=== PATIENT | male | born 1970 | race Two or more races ===

== ENCOUNTER 2017-02-17 09:18 | Emergency (ER) | payer OTHER ==
[2017-02-17 09:26] VITALS: BP 123/79; PULSE 53; TEMP 98.2; BMI 23.1
--- NOTE | 2017-02-17 10:12 | PDOC ---
History of Present Illness - General Chief Complaint: Eye Problem Stated Complaint: FOREIGN BODY SENSATION IN RT EYE Time Seen by Provider: 02/17/17 09:53 History Source: Patient Exam Limitations: No Limitations - History of Present Illness Initial Comments: 02/17/17 10:06 CHIEF COMPLAINT: Irritation to right eye HISTORY OF PRESENT ILLNESS: Patient is an otherwise healthy 47-year-old male, woke up this a.m. complaining of dryness to right eye and pruritus now with foreign body sensation to eye and pruritus. Denies any visual disturbance, denies any pain, reports rubbing eye this morning when he woke up. Denies any trauma to eye. REVIEW OF SYSTEMS: GENERAL/CONSTITUTIONAL: No fever or chills. No weakness. No weight change. HEAD, EYES, EARS, NOSE AND THROAT: No change in vision. Dryness and pruritus to right eye. No ear pain or discharge. No sore throat. RESPIRATORY: No cough, wheezing, or hemoptysis. SKIN : No rash or easy bruising. NEUROLOGIC: No headache, vertigo, loss of consciousness, or loss of sensation. HEMATOLOGIC/LYMPHATIC: No lymphadenopathy ALLERGIC/IMMUNOLOGIC: No hives or skin allergy. No latex allergy. PHYSICAL EXAM: GENERAL: The patient is awake, alert, and fully oriented, in no acute distress. HEAD: Normal with no signs of trauma. EYES: Pupils equal, round and reactive to light, extraocular movements intact, sclera anicteric, conjunctiva injected, extending to limbus after fluorescein staining, no corneal abrasion noted. ENT: Ears normal, nares patent, oropharynx clear without exudates. Moist mucous membranes. NECK: Normal range of motion, supple without lymphadenopathy, JVD, or masses. LUNGS: Breath sounds equal, clear to auscultation bilaterally. No wheezes, and no crackles. NEUROLOGICAL: Cranial nerves II through XII grossly intact. Normal speech, normal gait. SKIN: No erythema no facial edema. Warm, Dry, normal turgor, no rashes or lesions noted. Past History - Past Medical History Allergies/Adverse Reactions: Allergies Allergy/AdvReac Type Severity Reaction Status Date / Time No Known Allergies Allergy Verified 02/17/17 09:24 Home Medications: Ambulatory Orders Polymyxin B Sulfate/Tmp [Polytrim Opthalmic Solution -] 1 drop OD Q3H #1 drops 02/17/17 Other medical history: none - Suicide/Smoking/Psychosocial Hx Smoking History: Never smoked Information on smoking cessation initiated: No Hx Alcohol Use: No Drug/Substance Use Hx: No *Physical Exam - Vital Signs Last Vital Signs Temp Pulse Resp BP Pulse Ox 98.2 F 53 L 18 123/79 100 02/17/17 09:24 02/17/17 09:24 02/17/17 09:24 02/17/17 09:24 02/17/17 09:24 Medical Decision Making - Medical Decision Making 02/17/17 10:08 A/P: Patient here for evaluation of dry right eye with foreign body sensation, after floor seen staining there is no foreign body noted, no corneal abrasion. We'll DC patient home on Polytrim follow-up with ophthalmology patient reports having frequent episodes of dry eye will need to be followed up to start on medication for that. Patient denies any trauma or visual disturbance, no spots, or floaters. No viral or cough and cold-like symptoms. 02/17/17 13:39 *DC/Admit/Observation/Transfer Diagnosis at time of Disposition: Conjunctivitis Qualifiers: Conjunctivitis type: acute Acute conjunctivitis type: unspecified Laterality: right Qualified Code(s): H10.31 - Unspecified acute conjunctivitis, right eye - Discharge Dispostion Admit: No - Prescriptions Prescriptions: Polymyxin B Sulfate/Tmp [Polytrim Opthalmic Solution -] 1 drop OD Q3H #1 drops - Referrals Referrals: Ranulfo Mcleod MD [Staff Physician] - - Patient Instructions Printed Discharge Instructions: Conjunctivitis Additional Instructions: * Refrain from touching or scratching eye * Please wash hands frequently * Please followup with his primary care doctor in 2 days if symptoms persist * Medication as prescribed * Warm compresses to eye * If increased redness, swelling, pain to the eye please follow up with primary care doctor immediately or return to emergency room - Post Discharge Activity Work/School Note: Back to Work
== END 2017-02-17 10:14 | disposition home or self-care (01) ==
LOC: JERFT 09:18
DX: H10.31 Unspecified acute conjunctivitis, right eye (principal)
CPT/HCPCS: 99281-25

== ENCOUNTER 2020-07-30 23:10 | Emergency (ER) | payer OTHER ==
[2020-07-30 23:59] VITALS: BP 112/86; PULSE 79; TEMP 98.3; BMI 23.1
== END 2020-07-31 02:23 | disposition home or self-care (01) ==
LOC: JER 23:10
DX: M79.645 Pain in left finger(s) (principal)
CPT/HCPCS: 73130-TC-LT-FY; 73140-TC-LT-FY; 99284-25